=== PATIENT | female | born 1995 | race Caucasian/White ===

== ENCOUNTER 2024-07-18 10:24 | Outpatient (AMB) | payer OTHER, SELFPAY ==
--- NOTE | 2024-07-18 10:50 | MHC.PC.OV ---
Vital Signs 07/18/24 10:52 Height 5 ft 2.4 in Weight 128 lb 6 oz BMI 23.2 BP 110/66 Blood Pressure Location Lt brachial Position Sitting Pulse 69 Pulse Source Pulse Oximeter Temp 97.1 F Temp Source Temporal Artery Scan Pulse Oximetry (%) 97 Oxygen Delivery Method Room Air Intake Visit Reasons: establish care Intake Note: Patient is a new patient here to establish care for Wellness visit. Transferring care from Unknown. Medical records Have not been requested and Have not received. Request referral to CHANNEL DEVELOPMENT MANAGER. Filter Pulp Washer Required: No Head Of Store Operations: Not Required per policy Accompanied by: Self / Same As Patient Allergies No Known Allergies Allergy (Verified 07/18/24 11:06) Medication List - Last Reconciled 07/18/24 by MONTRELL Haynes No Known Home Meds Tobacco use date assessed: 07/18/24 Dental Screening Dental Screen Date: 07/18/24 Did you have a dental visit in the last 12 months?: No Did you have a dental problem in the last 6 months where you did not have access to dental care?: No Was dental information given to patient?: No HPI establish care HPI Details Previous PCP: The moved from [place] prior. She cannot remember the name Last visit: Last PE: in a while Specialist: chiropractor OBGYN: needs referral Past medical history: Neck pain-reports that she never went to the doctor with this issue, chiropractor did and x-ray and used to crack her neck Medications: n/a Family HX:maternal grand mother htn, mother bipolar, son autistic and ADHD and brother with autistic and adhd paternal grand mother has thyroid issue Problem: The patient is 28 year old female presenting to establish care Reports that she moved from [place] She denies SOB, chest pain, heart palpitation, and dizziness She denies abdominal pain or changes in bowel habits Neck pain: reports this been going on all her life reports seeing a chiropractor for this because 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 If she exerts herself or do anything active she gets a lot of pain reports feeling like all her stress is in her neck. Will order annual labs, refer her to obgyn and order medication for her neck The patient also wanted to add that when she was in [place], she would have bad cough only in the nighttime reports that it is hard to tell if it is going on still but she recently moved her and been sick like 3 time already reports that she will monitor and bring this back up on a later date [facility] Medical History (Updated 07/19/24 @ 08:16 by MONTRELL Haynes) Thyroid disease Bipolar 2 disorder Surgical History (Updated 07/18/24 @ 10:57 by MONA Garcia) No pertinent past surgical history Family History (Updated 07/19/24 @ 08:11 by MONTRELL Haynes) Son ADHD Autism HTN (hypertension) Maternal Grandmother No problems noted. 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 1. Little interest or pleasure in doing things: more than half the days 2. Feeling down, depressed, or hopeless: several days 3. Trouble falling or staying asleep, or sleeping too much: several days 4. Feeling tired or having little energy: several days 5. Poor appetite or overeating: several days 6. Feeling bad about yourself - or that you are a failure or have let yourself or your family down: several days 7. Trouble concentrating on things, such as reading the newspaper or watching television: several days 8. Moving or speaking so slowly that other people could have noticed. Or the opposite - being so fidgety or restless that you have been moving around a lot more than usual: not at all 9. Thoughts that you would be better off or of hurting yourself in some way: not at all Total score: 8 Depression Screening Interpretation: Positive Depression Screening Done: Yes 58630 - PHQ-9 Billing: Yes Source: Developed by Drs. Sulaiman Velazco, Mirtha Singh, Ky Hubbard and colleagues, with an educational dale from [employer]. Thrive Questionnaire Date Thrive assessed: 07/18/24 I am a: Patient What is your living situation today?: I do not have a steady places to live I am temporarily staying with others Within the past 12 months, did the food you bought not last and you didn't have the money to get more?: Often true Within the past 12 months, did you worry whether your food would run out before you got money to buy more?: Sometimes True Do you have trouble paying for medicines?: No Do you have trouble getting transportation to medical appointments?: I choose not to answer this question Do you have trouble paying your heating and electricity bill?: No Do you have trouble taking care of your child, family member or friend?: Yes Do you have trouble with day-to-day activities such as bathing, preparing meals, shopping, managing finances, etc.?: No Are you currently unemployed and looking for a job?: No Are you interested in more education?: No Please select the resources that you would like help with: Housing/Retirement, Utilities and Childcare Currently or been in a relationship where the following occur: No concerns reported THRIVE Score: 3 AUDIT C Alcohol Use Questionnaire (AUDIT-C) 1. How often do you have a drink containing alcohol?: Never Total Score: 0 HENRIQUE-7 AMB Questionnaire HENRIQUE-7 Date HENRIQUE - 7 assessed: 07/18/24 Feeling nervous, anxious, or on edge: 1 = Several days Not being able to stop or control worryin = Several days Worrying too much about different things: 1 = Several days Trouble relaxin = Several days Being so restless that it is hard to sit still: 1 = Several days Becoming easily annoyed or irritable: 1 = Several days Feeling afraid as if something awful might happen: 0 = Not at all Total HENRIQUE-7 score (0-4 normal; 5-9 mild; 10-14 moderate; 15-21 severe): 6 Source: Developed by Drs. Sulaiman Velazco, Ky Diazoenke and colleagues, with an educational dale from [employer]. HENRIQUE-7 Assessment Billing HENRIQUE-7 Assessment Tool: HENRIQUE-7 Assessment 70702 Review of Systems Const Details: Denies chills, Denies fatigue, Denies fever(s), Denies headache(s) and Denies weakness HEENT Denies change in vision, Denies dizziness, Denies headache(s), Denies hearing loss, Denies nasal congestion, Denies sinus pain, Denies sinus pressure and Denies sore throat Card Denies chest pain, Denies lightheadedness, Denies dyspnea and Denies other (palpitations) Resp Denies cough, Denies dyspnea and Denies wheezing GI Denies abdominal pain, Denies melena, Denies hematochezia, Denies change in bowel habits, Denies dyspepsia and Denies nausea Denies hematuria and Denies dysuria Musc Denies abnormal gait, Denies myalgias, +arthralgias ( reports chronic neck pain), Denies numbness and Denies tingling Skin/Breast Denies rash, Denies unusual bruising and Denies wounds Neuro Denies abnormal gait, Denies dizziness, Denies headache(s), Denies memory loss, Denies numbness, Denies Sensory deficit (Neuro), Denies tingling and Denies weakness Psych Denies anxiety, Denies depression and Denies memory loss Endo Denies cold intolerance, Denies fatigue, Denies heat intolerance, Denies polydipsia and Denies polyuria Blanco/Lymph Denies easy bleeding and Denies easy bruising Aller/Immun Denies wheezing Physical exam (Primary Care) Vital Signs: Last Vital Signs Temp 97.1 F 07/18/24 10:52 Pulse 69 07/18/24 10:52 BP 110/66 07/18/24 10:52 Pulse Ox 97 07/18/24 10:52 Oxygen Delivery Method Room Air 07/18/24 10:52 BMI result Body Mass Index 23.2 Tobacco/Smoking Status: Tobacco use Status Tobacco use date assessed 07/18/24 07/18/24 10:59 Patient Tobacco Use Status Never used Tobacco 07/18/24 10:59 e-Cigarette/Vaping Use Never Used 07/18/24 10:59 PHQ-9: PHQ-9 Score PHQ-9: Total score 8 07/18/24 11:17 Depression Screening Interpretation: Positive Thrive Assessment: Date of Thrive Assessment Date Thrive assessed 07/18/24 07/18/24 10:59 Currently or been in a relationship where the following occur: No concerns reported Const Other: General: no acute distress, well developed, alert and awake Nutritional Appearance: well nourished Orientation/consciousness: patient oriented x3 HENMT Head: Yes normocephalic and Yes atraumatic Ears: hearing grossly normal bilaterally and TM's normal bilaterally General nose exam: Normal external nose present and Normal nares present Mouth: Normal oral and palatal mucosa present and moist mucous membranes Teeth and gingiva: dentition normal Throat: Yes oropharynx normal Eyes Pupils: Equal, round and reactive pupils present and Pupil accommodation reflex normal EOM: EOMs intact bilaterally Neck Neck: Yes normal visual inspection, Yes no lymphadenopathy and Yes trachea midline Thyroid: Thyroid normal Chest Chest palpation & inspection: normal inspection of the chest Resp Effort & Inspection: normal respiratory effort Auscultation: clear to auscultation bilaterally Cardio Rate: regular rate Rhythm: regular rhythm Heart sounds: S1 normal heart sound present, S2 normal heart sound present, no gallops, no murmurs and no rubs Bruits: no abdominal aortic bruits and no carotid bruits GI Palpation (GI): No Abdominal aortic bruit present, Soft to palpation, nontender, No hepatosplenomegaly present and No Rebound tenderness present Auscultation: normal bowel sounds General: Yes no CVA tenderness Back/Spine/Pelvis Back: no CVA tenderness Cervical Spine: mild cervical tender with palpation Thoracic/Lumbar Spine: thoraco-lumbar ROM normal, No pain with thoraco-lumbar ROM, No thoracic spinal tenderness and No lumbar spinal tenderness Skin General: warm and dry. Normal skin color. Normal skin turgor Lesions: no lesions Rashes: no rashes Trauma: no lacerations or abrasions Wounds: no wounds Nails: normal Neuro General: patient oriented x3, gait normal Cranial nerves: Yes Equal, round and reactive pupils present Cognition (Neuro): normal cognition Gait exam (Neuro): Normal gait present Extrem General: Yes normal to inspection, No edema and No calf tenderness Psych Appearance: grossly normal Affect: normal affect Attitude: cooperative Thought process: Normal thought process present Coding Level of Care Code New Pt Level 4 (04539) Diagnoses Encounter to establish care with new provider Z76.89 Neck pain M54.2 Cervical cancer screening Z12.4 Additional Codes PHQ-9 - 42831 - PHQ-9 Billing: Yes ([id number]) HENRIQUE-7 Assessment Billing - HENRIQUE-7 Assessment Tool: HENRIQUE-7 Assessment 27708 ([id number]) Time Spent (min) 33 Assessment & Plan Assessment & Plan (1) Encounter to establish care with new provider: Code(s): Z76.89 - Persons encountering health services in other specified circumstances Category: Medical Plan: The patient is presenting to establish care. She moved from [place]. She is requesting a referral for OBGYN. Will order the blood work and schedule the patient for a physical. (2) Neck pain: Code(s): M54.2 - Cervicalgia Category: Medical Plan: The patient reports a longstanding neck pain that she has only seen chiropractor for. Will order and cervical xray to further evaluate (3) Cervical cancer screening: Code(s): Z12.4 - Encounter for screening for malignant neoplasm of cervix Category: Medical Plan: OBGYN referral placed Plan The patient to return in 3 weeks for annual physical Orders: Orders UA CC w/rflx Micro + Cult 07/18/24 Z00.00 - Encounter for general adult medical examination without abnormal findings TSH reflex Free T4 07/18/24 Z00.00 - Encounter for general adult medical examination without abnormal findings Vitamin D 25-OH Total 07/18/24 Z00.00 - Encounter for general adult medical examination without abnormal findings Complete Blood Count Auto Diff 07/18/24 Z00. - Encounter for general adult medical examination without abnormal findings Comprehensive [place]. Panel Fast 07/18/24 Z00.00 - Encounter for general adult medical examination without abnormal findings Lipid Panel 07/18/24 Z00.00 - Encounter for general adult medical examination without abnormal findings XR cervical spine 3V 07/18/24 M54.2 - Cervicalgia Referrals CHANNEL DEVELOPMENT MANAGER Referral Z12.4 - Encounter for screening for malignant neoplasm of cervix
[2024-07-18 10:52] VITALS: BP 110/66; PULSE 69; TEMP 36.2; O2SAT 97; BMI 23.2
== END 2024-07-18 11:32 | disposition home or self-care (01) ==
DX: Z76.89 Persons encountering health services in other specified circumstances (principal); M54.2 Cervicalgia; Z12.4 Encounter for screening for malignant neoplasm of cervix

== ENCOUNTER → 2024-07-18 10:24 | Outpatient (BNVA) | payer OTHER, SELFPAY | DX: M54.2 Cervicalgia (principal); Z76.89 Persons encountering health services in other specified circumstances | CPT/HCPCS: 96127; 99202 ==

== ENCOUNTER 2024-07-26 08:54 | Outpatient (REF) | payer OTHER, SELFPAY ==
--- NOTE | ~2024-07-26 | XR_ITS ---
EXAMINATION: XR CERVICAL SPINE CLINICAL INFORMATION: M54.2 - Cervicalgia COMPARISON: None available. TECHNIQUE: 3 views of the cervical spine were obtained. FINDINGS: There are no prevertebral soft tissue or bony abnormalities demonstrated. No compression fractures or subluxations are identified. Alignment is maintained at the atlanto-axial articulation. The disc spaces are preserved. No endplate changes are seen. The prevertebral soft tissues are normal. XR/XR cervical spine 3V IMPRESSION: Normal cervical spine examination. Electronically signed by: Girish Elkins MD 07/26/2024 01:55 PM [facility]
[2024-07-26 09:12] LABS: MANUAL DIFF FLAG NO
[2024-07-26 09:39] LABS: Basophils Percent Auto 0.7 % (0-2); Eosinophils Absolute Auto 0.2 X10*3/uL (0.0-0.4); Eosinophils Percent Auto 2.9 % (0-4); Hematocrit 37.7 % (37.0-47.0); Hemoglobin 12.4 g/dl (12.0-16.0); Imm Gran Abs Auto 0.01 X10*3/uL (0.00-0.03); Imm Gran Pct Auto 0.2 % (0.0-0.4); Lymphocytes Absolute Auto 2.2 X10*3/uL (1.2-4.9); Lymphocytes Percent Auto 39.4 % (20-40); Mean Corpuscular HGB Conc 32.9 g/dl (31.0-35.0); Mean Corpuscular Hemoglobin 29.7 pg (27.0-33.0); Mean Corpuscular Volume 90.4 fL (80.0-98.0); Mean Platelet Volume 9.5 fL (9.4-12.3); Monocytes Absolute Auto 0.4 X10*3/uL (0.1-1.2); Monocytes Percent Auto 7.4 % (2-11); Neutrophils Absolute Auto 2.7 x10*3/uL (2.0-8.3); Neutrophils Percent Auto 49.4 % (45-73); Platelet Count 262 X10*3/uL (160-400); Red Blood Count 4.17 X10*6/uL (4.20-5.50); Red Cell Distribution Width 12.4 % (11.0-16.0); White Blood Count 5.5 X10*3/uL (4.8-10.8)
[2024-07-26 09:47] LABS: Appearance Urine Cloudy; Color Urine Yellow; Glucose Urine UA Negative (Negative); Leukocyte Esterase Urine Negative (Negative); Nitrite Urine Negative (Negative); PH 7.5 (5.0-9.0); Specific Gravity - Urine 1.025 (1.005-1.025); Urine Blood Negative (Negative); Urine Ketones Negative (Negative); Urine Protein Negative (Neg-Trace)
[2024-07-26 10:19] LABS: Alanine Aminotransferase 22 U/L (0-31); Albumin Level 4.1 g/dL (3.5-5.0); Alkaline Phosphatase 40 U/L (39-117); Anion Gap 10 (12-20); Aspartate Amino Transferase 17 U/L (5-31); Bilirubin Total 0.3 mg/dL (0.0-1.0); Blood Urea Nitrogen 18 mg/dL (9-16); Calcium 9.2 mg/dL (8.4-10.2); Carbon Dioxide 26 mmol/L (22-29); Chloride 107 mmol/L (96-108); Cholesterol 157 mg/dL (<200); Estimated Glomerular Filt Rate > 60; Glucose Fasting 74 mg/dL (60-99); HDL Cholesterol 53 mg/dL (>40); LDL Cholesterol Calculated 95 mg/dL (<100); Potassium 3.9 mmol/L (3.3-5.1); Sodium 139 mmol/L (135-145); Total Protein 8.1 g/dL (6.5-8.0); Triglycerides 47 mg/dL (<150)
[2024-07-26 10:39] LABS: TSH reflex Free T4 1.34 uIU/mL (0.32-4.0); Vitamin D 25-OH Total 20.2 ng/mL (>30)
== END 2024-07-26 08:55 | disposition home or self-care (01) ==
LOC: HO.LAB 08:54
DX: Z00.00 Encounter for general adult medical examination without abnormal findings (principal); M54.2 Cervicalgia
CPT/HCPCS: 36415; 72040; 80053; 80061; 81003; 82306; 84443; 85025

== ENCOUNTER → 2024-07-26 09:17 | Outpatient (BNV) | payer OTHER, SELFPAY | PROVIDERS: Visit Provider Radiology Diagnostic Radiology | DX: M54.2 Cervicalgia (principal) | CPT/HCPCS: 72040 ==

== ENCOUNTER 2024-08-15 10:49 | Outpatient (AMB) | payer OTHER, SELFPAY ==
--- NOTE | 2024-08-15 11:03 | A.OFFPC_ITS ---
Vital Signs 08/15/24 11:04 Height 5 ft 2 in Weight 133 lb 6.4 oz BMI 24.4 BP 94/58 L Blood Pressure Location Lt brachial Position Sitting Respiration 16 Pulse 70 Pulse Source Pulse Oximeter Temp 98.0 F Temp Source Oral Pulse Oximetry (%) 99 Oxygen Delivery Method Room Air Intake Visit Reasons: pe Airline Manager Required: No Accompanied by: Self / Same As Patient Is last menstrual period known: Yes Last menstrual period: 08/05/24 Allergies No Known Allergies Allergy (Verified 07/18/24 11:06) Medication List - Last Reconciled 08/15/24 by MONTRELL Haynes No Known Home Meds Tobacco use date assessed: 08/15/24 Dental Screening Dental Screen Date: 08/15/24 Did you have a dental visit in the last 12 months?: Yes Did you have a dental problem in the last 6 months where you did not have access to dental care?: No Was dental information given to patient?: Patient has dentist HPI pe HPI Details 28-year-old female presenting for annual physical Dentist: up to date Eye: up to date Snellen: Right: Left: Corrected vision: glasses STI screening: Colonoscopy:n/a Pap Smer: up to date PHQ-9: Flu: decline COVID: x2 Tdap: up to date Diet: regular Exercise: running intermittently cervical pain: PT-evaluation an treat itchy skin--hydrocortisone PFSH Medical History (Updated 08/27/24 @ 12:12 by MONTRELL Haynes) Thyroid disease Bipolar 2 disorder Surgical History No pertinent past surgical history Family History Son ADHD Autism HTN (hypertension) Maternal Grandmother No problems noted. 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 1. Little interest or pleasure in doing things: not at all 2. Feeling down, depressed, or hopeless: not at all 3. Trouble falling or staying asleep, or sleeping too much: not at all 4. Feeling tired or having little energy: not at all 5. Poor appetite or overeating: not at all 6. Feeling bad about yourself - or that you are a failure or have let yourself or your family down: not at all 7. Trouble concentrating on things, such as reading the newspaper or watching television: not at all 8. Moving or speaking so slowly that other people could have noticed. Or the opposite - being so fidgety or restless that you have been moving around a lot more than usual: not at all 9. Thoughts that you would be better off or of hurting yourself in some way: not at all Total score: 0 Depression Screening Interpretation: Negative Depression Screening Done: Yes 04498 - PHQ-9 Billing: Yes Source: Developed by Drs. Sulaiman Velazco, Mirtha Singh, Ky Hubbard and colleagues, with an educational dale from [employer]. Thrive Questionnaire Date Thrive assessed: 08/15/24 I am a: Patient What is your living situation today?: I have a steady place to live Within the past 12 months, did the food you bought not last and you didn't have the money to get more?: Never true Within the past 12 months, did you worry whether your food would run out before you got money to buy more?: Never true Do you have trouble paying for medicines?: No Do you have trouble getting transportation to medical appointments?: I choose not to answer this question Do you have trouble paying your heating and electricity bill?: No Do you have trouble taking care of your child, family member or friend?: Yes Do you have trouble with day-to-day activities such as bathing, preparing meals, shopping, managing finances, etc.?: No Are you currently unemployed and looking for a job?: No Are you interested in more education?: No Please select the resources that you would like help with: None Currently or been in a relationship where the following occur: No concerns reported THRIVE Score: 0 AUDIT C Alcohol Use Questionnaire (AUDIT-C) 1. How often do you have a drink containing alcohol?: Never Total Score: 0 HENRIQUE-7 AMB Questionnaire HENRIQUE-7 Date HENRIQUE - 7 assessed: 08/15/24 Feeling nervous, anxious, or on edge: 0 = Not at all Not being able to stop or control worryin = Not at all Worrying too much about different things: 0 = Not at all Trouble relaxin = Not at all Being so restless that it is hard to sit still: 0 = Not at all Becoming easily annoyed or irritable: 0 = Not at all Feeling afraid as if something awful might happen: 0 = Not at all Total HENRIQUE-7 score (0-4 normal; 5-9 mild; 10-14 moderate; 15-21 severe): 0 Source: Developed by Drs. Sulaiman Velazco, Mirtha Singh, Ky Hubbard and colleagues, with an educational dale from [employer]. HENRIQUE-7 Assessment Billing HENRIQUE-7 Assessment Tool: HENRIQUE-7 Assessment 76684 Review of Systems Const Denies headache(s) Eyes Denies loss of vision ENT Denies vertigo, Denies dizziness, Denies headache(s) and Denies sore throat Card Denies chest pain, Denies leg edema and Denies lightheadedness Resp Denies cough, Denies hemoptysis and Denies wheezing GI Denies abdominal pain, Denies melena, Denies constipation, Denies diarrhea and Denies vomiting Denies urinary frequency, Denies dysuria and Denies urinary urgency Musc Denies arthralgias, Denies joint swelling, Denies numbness, Denies tingling and Reports other (neck pain intermittently especially when running) Neuro Denies Abnormal speech present, Denies behavioral changes, Denies vertigo, Denies dizziness, Denies headache(s), Denies loss of vision, Denies memory loss, Denies numbness and Denies tingling Psych Denies anxiety, Denies behavioral changes, Denies depression, Denies memory loss and Denies panic attacks Blanco/Lymph Denies easy bleeding and Denies easy bruising Aller/Immun Denies wheezing Physical exam (Primary Care) Vital Signs: Last Vital Signs Temp 98.0 F 08/15/24 11:04 Pulse 70 08/15/24 11:04 Resp 16 08/15/24 11:04 BP 94/58 L 08/15/24 11:04 Pulse Ox 99 08/15/24 11:04 Oxygen Delivery Method Room Air 08/15/24 11:04 BMI result Body Mass Index 24.4 Tobacco/Smoking Status: Tobacco use Status Tobacco use date assessed 08/15/24 08/15/24 11:13 Patient Tobacco Use Status Never used Tobacco 08/15/24 11:13 e-Cigarette/Vaping Use Never Used 08/15/24 11:13 PHQ-9: PHQ-9 Score PHQ-9: Total score 0 08/15/24 11:18 Depression Screening Interpretation: Negative Thrive Assessment: Date of Thrive Assessment Date Thrive assessed 08/15/24 08/15/24 11:13 Currently or been in a relationship where the following occur: No concerns repo rted Const General: healthy appearing, no acute distress, alert and awake Nutritional Appearance: well nourished Orientation/consciousness: oriented to person, oriented to place and oriented to time HENMT Ears: TM's normal bilaterally General nose exam: Normal nasal mucous membranes and turbinates present Eyes Conjunctivae: conjunctivae normal Sclerae: sclerae normal Pupils: Equal, round and reactive pupils present Neck Neck: Yes no lymphadenopathy and Yes no JVD Thyroid: Thyroid normal Carotids: no bruits Resp Effort & Inspection: normal respiratory effort and not tachypneic Auscultation: no crackles, no rales, no rhonchi and no wheezes Cardio Rate: regular rate Rhythm: regular rhythm Heart sounds: no murmurs and normal S1 and S2 GI Palpation (GI): Soft to palpation, nontender, no hepatomegaly and no sple nomegaly Auscultation: normal bowel sounds Skin General skin exam: no rashes or lesions noted and dry skin Neuro General: oriented to person, oriented to place and oriented to time Cranial nerves: Yes Equal, round and reactive pupils present Speech: No Abnormal speech present Gait exam (Neuro): Normal gait present Motor exam (neuro): no tremor noted Extrem Right upper extremity: full ROM Left upper extremity: full ROM Right lower extremity: full ROM; no edema Left lower extremity: full ROM; no edema Psych Mental Status: mental status grossly normal Speech and movement: Normal speech and movement present Affect: normal affect Attitude: cooperative Thought process: Normal thought process present Coding Level of Care Code Est Pt Prev Care 18-39y(07808) Diagnoses Annual physical exam Z00.00 Neck pain M54.2 Vitamin D deficiency E55.9 Itchy skin L29.9 Additional Codes HENRIQUE-7 Assessment Billing - HENRIQUE-7 Assessment Tool: HENRIQUE-7 Assessment 11844 ([id number]) PHQ-9 - 80743 - PHQ-9 Billing: Yes ([id number]) Time Spent (min) 34 Assessment & Plan Assessment & Plan (1) Annual physical exam: Code(s): Z00.00 - Encounter for general adult medical examination without abnormal findings Category: Medical Plan: Preventative guidelines and recent labs reviewed with the patient (2) Neck pain: Code(s): M54.2 - Cervicalgia Category: Medical Plan: Cervical x-ray showed normal cervical spine. We will refer the patient to PT for evaluation (3) Vitamin D deficiency: Code(s): E55.9 - Vitamin D deficiency, unspecified Category: Medical Plan: Start cholecalciferol 50 mcg daily (4) Itchy skin: Code(s): L29.9 - Pruritus, unspecified Category: Medical Plan: Hydrocortisone 1% topical b.i.d.-q.i.d. P.r.n. Orders: Orders Lipid Panel 1 Year Z00.00 - Encounter for general adult medical examination without abnormal findings, E55.9 - Vitamin D deficiency, unspecified Vitamin D 25-OH Total 1 Year Z00.00 - Encounter for general adult medical examination without abnormal findings, E55.9 - Vitamin D deficiency, unspecified Glucose Fasting 1 Year Z00.00 - Encounter for general adult medical examination without abnormal findings, E55.9 - Vitamin D deficiency, unspecified PT Evaluation and Treatment 08/15/24 M54.2 - Cervicalgia Complete Blood Count Auto Diff 1 Year Z00.00 - Encounter for general adult medical examination without abnormal findings, E55.9 - Vitamin D deficiency, unspecified Comprehensive Mears. Panel Fast 1 Year Z00.00 - Encounter for general adult medical examination without abnormal findings, E55.9 - Vitamin D deficiency, unspecified UA CC w/rflx Micro + Cult 1 Year Z00.00 - Encounter for general adult medical examination without abnormal findings, E55.9 - Vitamin D deficiency, unspecified TSH reflex Free T4 1 Year Z00.00 - Encounter for general adult medical examination without abnormal findings, E55.9 - Vitamin D deficiency, unspecified Medications: New cholecalciferol (vitamin D3) 50 mcg PO DAILY 60 caps 2RF E55.9 - Vitamin D deficiency, unspecified hydrocortisone 1% (Anti-Itch (hydrocortisone)) 1 appl topical BID-QID PRN 453.6 grams 0RF skin irritation
[2024-08-15 11:04] VITALS: BP 94/58; PULSE 70; RESP 16; TEMP 36.7; O2SAT 99; BMI 24.4
== END 2024-08-15 11:37 | disposition home or self-care (01) ==
LOC: HO.HMCH 10:49
DX: Z00.00 Encounter for general adult medical examination without abnormal findings (principal); M54.2 Cervicalgia; E55.9 Vitamin D deficiency, unspecified; L29.9 Pruritus, unspecified

== ENCOUNTER → 2024-08-15 10:49 | Outpatient (BNVA) | payer OTHER, SELFPAY | DX: Z00.00 Encounter for general adult medical examination without abnormal findings (principal); M54.2 Cervicalgia; L29.9 Pruritus, unspecified; E55.9 Vitamin D deficiency, unspecified | CPT/HCPCS: 96127; 99395 ==

== ENCOUNTER 2024-10-17 10:11 | Outpatient (AMB) | payer OTHER, SELFPAY ==
--- NOTE | 2024-10-17 10:12 | MHC.OFFVIS ---
Vital Signs 10/17/24 10:20 Height 5 ft 2 in Weight 128 lb BMI 23.4 BP 112/72 Intake Visit Reasons: Annual/BC Consult Intake Note: Per patient no concerns, believes her last pap smear was 1 year ago and thinks she has had an abnormal pap smear in the past because some sort of procedure was done but doesn't know what they did exactly. Therapeutic Specialist: Therapeutic Specialist Present (Kaity) Accompanied by: Self / Same As Patient Allergies No Known Allergies Allergy (Verified 10/17/24 10:21) Medication List - Last Reconciled 10/17/24 by Miranda Mendoza CNM cholecalciferol (vitamin D3) 50 mcg PO DAILY hydrocortisone 1% (Anti-Itch (hydrocortisone)) 1 appl topical BID-QID PRN Is last menstrual period known: Yes Last menstrual period: 09/29/24 Post menopausal: No Patient : No HPI HPI Annual/BC Consult: Details: Patient is here for new obstetrics/gynecology nurse visit. She previously received obstetrics/gynecology nurse care in [place] where she lives for 6 years. She is originally from [place]. She said she did have an abnormal Pap smear last year and she had some sort of freezing procedure on her cervix and she was told to come back 7 months later but she had moved. She has 2 children that she delivered vaginally.. Less than a year ago she had breast implants and removal of extra skin and question lift and also liposuction and fat was removed from her abdomen and placed in her buttocks. She is sexually active but ran out of her control last April which was a NuvaRing which she had used for 2 years and liked very much. She said her obstetrics/gynecology nurse provider in [place] told her she could use it continuously and she did so for 2 years with no problems at all. Since she ran out of it she has not been doing anything in terms of control not even using condoms but she would prefer not to get at this time if she did get she would have the baby.. Her last period was September 29. [facility] Medical History (Updated 10/17/24 @ 13:02 by Miranda Mendoza CNM) Thyroid disease Bipolar 2 disorder Surgical History (Updated 10/17/24 @ 11:23 by Miranda Mendoza CNM) Hx of breast implants, bilateral No pertinent past surgical history Family History Son ADHD Autism HTN (hypertension) Maternal Grandmother No problems noted. 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 Cognitive needs: No Hearing needs: No Vision needs: Yes (Glasses) Female Reproductive History Menstrual Age of Menarche: 12 Duration of menses: 3-5 days Date of last menstrual period: 09/29/24 control method: none Total pregnancies: 4 Full term: 2 Ab induced: 1 Ab spontaneous: 1 History of abnormal pap smear: No Physical Exam Vital Signs: Last Vital Signs BP 112/72 10/17/24 10:20 BMI result Body Mass Index 23.4 Const General: healthy appearing, comfortable, no acute distress, well developed and alert Nutritional Appearance: average body habitus Orientation/consciousness: patient oriented x3 Limitations: no limitations HEENT Head: Yes normocephalic Neck Neck: Yes normal visual inspection Chest Chest palpation & inspection: normal inspection of the chest Breast/axilla inspection: normal inspection of the breasts and normal inspection of the axillae Breast/axilla palpation: normal palpation of the breasts and normal palpation of the axillae Resp Effort & Inspection: normal respiratory effort GI Inspection: Yes normal to inspection, No Abdominal wall edema and No distended Palpation (GI): Soft to palpation and nontender Other: Evidence of breast surgery and implants and lift. Abdomen very flat status post lie peau. Pelvic exam within normal limits multiparous cervix long close thick mobile nontender uterus feels more less midposition mobile nontender adnexa nontender very good tone with Kegel. General: Yes bladder normal to palpation External Female Exam: normal external appearance and normal appearance of the urethra Speculum Exam - Vagina: normal appearance of the vagina, normal palpation and normal vaginal discharge Speculum Exam - Cervix: normal appearance of the cervix, normal palpation and nontender Bimanual exam- vagina & uterus: normal bimanual exam, normal palpation, uterine size normal, bladder normal to palpation, consistency normal, normal palpation, uterine mobility normal, uterine shape normal, No Cervical tenderness present, non-tender and no cervical motion tenderness Bimanual Exam- Adnexa, other: normal adnexae, no masses, normal and No adnexal tenderness Neuro General: patient oriented x3 Assessment & Plan Assessment & Plan (1) Hx of abnormal cervical Pap smear: Comment: Says it was abnormal in [place] 2023. Had procedure. Pap done 09/2024. Code(s): Z87.42 - Personal history of other diseases of the female genital tract Category: Medical (2) control counseling: Comment: Patient had used NuvaRing successfully for 2 years (she is to use it continuously and may elect to do so again) we prescribe 09/2024 to start with next menses, Code(s): Z30.09 - Encounter for other general counseling and advice on contraception Category: Medical (3) History of liposuction: Code(s): Z98.890 - Other specified postprocedural states Category: Surgical (4) Well woman exam with routine gynecological exam: Code(s): Z01.419 - Encounter for gynecological examination (general) (routine) without abnormal findings Category: Medical Plan -----Discussed in this visit the following: healthy balanced diet, regular and consistent exercise, getting recommended health screens, doing the best she can for her particular health concerns, kegel exercises, pap smear screening and followup recommendations, mammography screening and SBE, normal changes in cycles in her life stage--- . Discussed safer sex until she has well established on the NuvaRing use of the NuvaRing reviewed in detail she is very familiar with it and comfortable with it and likes it and she had no problems using it continuously discussed that normally I do not prescribe it in that way but if she chooses to use it that way and has no difficulty that she would be okay but not to be surprised if she does experience some breakthrough bleeding because it can happen. Given her history of something abnormal with her Pap smear we did a Pap smear today as well as testing for gonorrhea chlamydia trichomoniasis bacterial vaginosis and yeast everything appeared within normal limits . Reviewed her self-care that she has been doing status post Lipo and she is very aware that she wants to maintain healthy weight and not undue what her hard efforts her brought her She is currently not working because her youngest child has autism which is why she moved here to be near [facility] [place] and because of services it are available here and not in [place]. We will see her in 1 year as she is in experienced user not normotensive does not smoke I am comfortable seeing her in a year. I reviewed with her the danger signs of thromboembolic events and what she should do and she is aware.. etonogestrel 0.12 mg-ethinyl estradiol 0.015 mg/24 hr vaginal ring?1 vag ring vaginal Q4W 3 ea 4RF NS [place] 10/17/24 11:21 (Transmitted) Incomplete Orders Incomplete Orders No Incomplete Orders Follow Up Scheduling?Grid Follow Up Timeframe/Date Comment RTC 1 year Patient Status Orders: Orders Pap Smear Today Z01.419 - Encounter for gynecological examination (general) (routine) without abnormal findings CT NG by PCR Today Z01.419 - Encounter for gynecological examination (general) (routine) without abnormal findings Bacterial Vaginosis Panel Today Z01.419 - Encounter for gynecological examination (general) (routine) without abnormal findings Medications: New etonogestrel-ethinyl estradiol 0.12-0.015 mg/[address] for 3 weeks of a 4-week cycle 1 vag ring vaginal Q4W 3 ea 4RF NS Coding Level of Care Code New Pt Prev Care 18-39yr([id number] Diagnoses Hx of abnormal cervical Pap smear Z87.42 control counseling Z30.09 History of liposuction Z98.890 Well woman exam with routine gynecological exam Z01.419
[2024-10-17 10:20] VITALS: BP 112/72; BMI 23.4
== END 2024-10-17 14:16 | disposition home or self-care (01) ==
LOC: HO.HWSM 10:11
PROVIDERS: Visit Provider Advanced Practice Midwife
DX: Z01.419 Encounter for gynecological examination (general) (routine) without abnormal findings (principal)
CPT/HCPCS: 99385; 99459

== ENCOUNTER 2024-10-17 10:11 | Outpatient (REF) | payer OTHER, SELFPAY ==
[2024-10-18 05:58] LABS: CT PCR NOT DETECTED (Not Detect.); NG PCR NOT DETECTED (Not Detect.)
[2024-10-18 08:12] LABS: Bacterial Vaginosis PCR NEGATIVE (Negative); Candida Group PCR DETECTED (Not Detect); Candida glab krusei PCR NOT DETECTED (Not Detect); Trichomonas vaginalis PCR NOT DETECTED (Not Detect)
== END 2024-10-17 10:12 | disposition home or self-care (01) ==
LOC: HO.LNP 10:11
PROVIDERS: Visit Provider Advanced Practice Midwife
DX: Z01.419 Encounter for gynecological examination (general) (routine) without abnormal findings (principal); R87.610 Atypical squamous cells of undetermined significance on cytologic smear of cervix (ASC-US); Z87.42 Personal history of other diseases of the female genital tract
CPT/HCPCS: 81515; 87491; 87591; 88175; 99385; 99459

== ENCOUNTER 2024-11-16 13:00 | Outpatient (RCR) | payer OTHER, SELFPAY ==
--- NOTE | 2024-11-07 15:02 | MHC.PT.EP ---
[facility] [place] Office [place] Office [place] Office [address] [phone] F: [phone] F: [phone] F: [phone] F: [phone] Physical Therapy Plan of Care Date of Evaluation: 11/07/24 Date of Surgery: Diagnosis: cervicalgia Assessment: Patient is a 29 year old R handed female who presents with s/s consistent with cervicalgia, neck pain. 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 Patient past medical history includes bipolar disorder. Current impairments include pain, posture, ROM, strength, activity tolerance and functional mobility. Functional limitations include decreased ability to sleep, lift, exercise, carry, push and pull. Patient is motivated with good rehab potential. Skilled PT will address impairments and functional limitations in order to achieve goals. Frequency and Duration: The patient will be seen 2x/week for 5 weeks Short Term Goals: I with HEP - 2 weeks AROM rotation to 56 - 3 weeks min tight b/l pec - 3 weeks Phlebotomy Instructor Goals: AROM rotation to 62 b/l - 5 weeks NPDI 14% or less - 5 weeks Max pain 2/10 with daily routine and sleep - 5 weeks b/l ER strength 4+/5 - 5 weeks improved postural awareness - 5 weeks Treatment Plan: Modalities to reduce pain, spasms and effusion. Manual therapy to restore motion and function. Therapeutic exercise to improve strength and flexibility. Neuromuscular re-education for posture and balance. Therapeutic activities to return to functional activities of daily living. Electronically signed by: Pawan Johnson, PT Please sign and return to therapist. Thank you for your referral.
--- NOTE | 2024-12-19 13:31 | MHC.PT.DC ---
[facility] [place] Office [place] Office [place] Office [address] Mend[address] [phone] F: [phone] F: [phone] F: [phone] F: [phone] Physical Therapy Discharge Report Diagnosis: cervicalgia Date of Surgery: Date of Evaluation: 11/07/24 Date of Discharge: 11/19/24 Treatments to Date: 3 Cancellations to Date: No Shows to Date: Discharge Status: Patient Elected to Stop Discharge Summary: 11/16/24: pt has been feeling better overall and with good HEP compliance. We did progress postural strength with no adverse reactions. 11/09/24: pt I with HEP already. good response to program and manual. Patient is a 29 year old R handed female who presents with s/s consistent with cervicalgia, neck pain. 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 Patient past medical history includes bipolar disorder. Current impairments include pain, posture, ROM, strength, activity tolerance and functional mobility. Functional limitations include decreased ability to sleep, lift, exercise, carry, push and pull. Patient is motivated with good rehab potential. Skilled PT will address impairments and functional limitations in order to achieve goals. Electronically signed by: Pawan Johnson, PT Please sign and return to therapist. Thank you for your referral.
== END 2024-12-19 13:32 | disposition home or self-care (01) ==
LOC: HO.PTCHIC 13:00
DX: M54.2 Cervicalgia (principal)
CPT/HCPCS: 97110; 97140; 97161